=== PATIENT | female | born 1950 | race Caucasian/White ===

== ENCOUNTER 2018-06-09 16:21 | Inpatient (IN) | payer MEDICARE ==
[~2018-06-09] VITALS: Ht 165.1 cm; Wt 67.6 kg
--- NOTE | 2018-06-09 16:11 | NUR ---
ED Nurse Note: Pt BIBA from home due to complaints of vomiting an diarrhea since Thursday. Pt is complainig of body ache and rating the pain a 5/10. Pt appears pale in appearance. Pt had 3 episodes of vomiting today and no episode of diarrhea. Pt states that the vomit is undigested food. A + O x4. Ambulatory.
[2018-06-09 16:13] VITALS: BP 111/62
[~2018-06-09 16:21] MED LIST: SYMBICORT 16010.2 G1 IH
[2018-06-09] MEDS ORDERED: Lidocaine 2% Visc 15ml soln ORAL ONE (17:30)
[2018-06-09 17:40] LABS: BASOPHILS % (AUTO) 0.9 % (0.0-2.0); EOSINOPHILS % (AUTO) 0.4 % (0.0-3.0); HEMATOCRIT 38.3 % (37.0-47.0); HEMOGLOBIN 12.8 G/DL (12.0-16.0); LYMPHOCYTES % (AUTO) 32.8 % (20.0-45.0); MEAN CORPUSCULAR VOLUME 94 FL (80-99); MONOCYTES % (AUTO) 11.3 % (1.0-10.0); NEUTROPHILS % (AUTO) 54.6 % (45.0-75.0); PLATELET COUNT 190 K/UL (150-450); RED BLOOD COUNT 4.05 M/UL (4.20-5.40); RED CELL DISTRIBUTION WIDTH 11.3 % (11.6-14.8); WHITE BLOOD COUNT 4.4 K/UL (4.8-10.8)
--- NOTE | 2018-06-09 17:48 | NUR ---
ED Nurse Note: Pt went down for xray.
[2018-06-09 17:50] LABS: ANION GAP 5 mmol/L (5-15); BLOOD UREA NITROGEN 22 mg/dL (7-18); CALCIUM 8.8 MG/DL (8.5-10.1); CARBON DIOXIDE 29 MMOL/L (21-32); CHLORIDE 104 MMOL/L (98-107); CREATININE 1.3 MG/DL (0.55-1.30); POTASSIUM 4.1 MMOL/L (3.5-5.1); SODIUM 138 MMOL/L (136-145)
[2018-06-09 17:54] LABS: ALANINE AMINOTRANSFERASE 22 U/L (12-78); ALBUMIN 2.7 G/DL (3.4-5.0); ALBUMIN/GLOBULIN RATIO 0.8 (1.0-2.7); ALKALINE PHOSPHATASE 61 U/L (46-116); ASPARTATE AMINO TRANSFERASE 31 U/L (15-37); BILIRUBIN,TOTAL 0.2 MG/DL (0.2-1.0)
--- NOTE | 2018-06-09 17:59 | NUR ---
ED Nurse Note: Pt back from CT.
--- NOTE | 2018-06-09 19:04 | NUR ---
HAND-OFF: Report given to JATINDER Francis.
--- NOTE | 2018-06-09 19:27 | Emergency Room Report ---
History of Present Illness General Chief Complaint: Nausea, Vomiting, and Diarrhea Source: Patient Present Illness HPI This patient states she has a history of severe GERD and gastritis. She has a hiatal hernia. She receives all of her care in the [facility] in [place]. She states she is on 3 different medications for acid reflux. She has seen a escapement matcher and a armhole baster jumpbasting. She states that over the past 3 days she has had progressively worsening burning in her throat and recurrent nausea vomiting epigastric pain. She denies fever or chills. She denies dysuria or hematuria. She does have a history of COPD. Allergies: Coded Allergies: No Known Allergies (Unverified , 06/09/18) Patient History Last Menstrual Period: n/a Nursing Documentation-H Hx Asthma: Yes Hx COPD: Yes - PNA Physical Exam Vital Signs Date Time Temp Pulse Resp B/P (MAP) Pulse Ox O2 Delivery O2 Flow Rate FiO2 06/09/18 16:03 98.1 86 18 112/73 96 Room Air Medical Decision Making Laboratory Tests Test 06/09/18 17:19 White Blood Count 4.4 K/UL (4.8-10.8) L Red Blood Count 4.05 M/UL (4.20-5.40) L Hemoglobin 12.8 G/DL (12.0-16.0) Hematocrit 38.3 % (37.0-47.0) Mean Corpuscular Volume 94 FL (80-99) Mean Corpuscular Hemoglobin 31.5 PG (27.0-31.0) H Mean Corpuscular Hemoglobin Concent 33.3 G/DL (32.0-36.0) Red Cell Distribution Width 11.3 % (11.6-14.8) L Platelet Count 190 K/UL (150-450) Mean Platelet Volume 5.7 FL (6.5-10.1) L Neutrophils (%) (Auto) 54.6 % (45.0-75.0) Lymphocytes (%) (Auto) 32.8 % (20.0-45.0) Monocytes (%) (Auto) 11.3 % (1.0-10.0) H Eosinophils (%) (Auto) 0.4 % (0.0-3.0) Basophils (%) (Auto) 0.9 % (0.0-2.0) Sodium Level 138 MMOL/L (136-145) Potassium Level 4.1 MMOL/L (3.5-5.1) Chloride Level 104 MMOL/L (98-107) Carbon Dioxide Level 29 MMOL/L (21-32) Anion Gap 5 mmol/L (5-15) Blood Urea Nitrogen 22 mg/dL (7-18) H Creatinine 1.3 MG/DL (0.55-1.30) Estimate Glomerular Filtration Rate 40.6 mL/min (>60) Glucose Level 92 MG/DL (74-106) Calcium Level 8.8 MG/DL (8.5-10.1) Total Bilirubin 0.2 MG/DL (0.2-1.0) Aspartate Amino Transferase (AST) 31 U/L (15-37) Alanine Aminotransferase (ALT) 22 U/L (12-78) Alkaline Phosphatase 61 U/L (46-116) Total Protein 6.3 G/DL (6.4-8.2) L Albumin 2.7 G/DL (3.4-5.0) L Globulin 3.6 g/dL Albumin/Globulin Ratio 0.8 (1.0-2.7) L Lipase 171 U/L (73-393) Last Vital Signs Date Time Temp Pulse Resp B/P (MAP) Pulse Ox O2 Delivery O2 Flow Rate FiO2 06/09/18 16:13 98.1 74 14 111/62 96 Room Air Hina Baez DO Jun 09, 2018 19:27
[2018-06-09 19:30] VITALS: BP 135/74
[2018-06-09] MEDS ORDERED: Albuterol ud Inhalation HHN ONE (19:30)
[2018-06-09] MEDS ORDERED: Ipratropium 0.02% Inh Soln 2.5ml UD HHN ONE (19:30)
[2018-06-09 19:37] LABS: APPEARANCE,URINE CLEAR; BILIRUBIN, URINE NEGATIVE (NEGATIVE); COLOR,URINE PALE YELLOW; GLUCOSE, URINE (UA) NEGATIVE (NEGATIVE); KETONES,URINE NEGATIVE (NEGATIVE); LEUKOCYTE ESTERASE ,URINE NEGATIVE (NEGATIVE); NITRITE,URINE POSITIVE (NEGATIVE); PH,URINE 6 (4.5-8.0); PROTEIN,URINE NEGATIVE (NEGATIVE); UROBILINOGEN,URINE NORMAL MG/DL (0.0-1.0)
[2018-06-09 21:00] VITALS: BP 130/72
--- NOTE | 2018-06-09 21:12 | NUR ---
ER Nurse Note: Pt a&ox4, VSS, no signs of distress. Pt does not complain of pain. Pt is calm, cooperative. Awaiting orders and bed, will continue to montior.
--- NOTE | 2018-06-09 21:30 | NUR ---
ER Nurse Note: Report given to JATINDER Arreola in [place] for continuity of care. Pt a&ox4, VSS, no signs of distress. No n/v/d on shift. All orders completed per ERMD orders. Pt left with all belongings.
[2018-06-09 22:04] VITALS: BP 135/74
[2018-06-09] MEDS ORDERED: Promethazine HCl 25 MG in NS 55 ML IV PRN (22:15)
[2018-06-09] MEDS ORDERED: Nitroglycerin Subl 0.4mg tab SL PRN (22:15)
[2018-06-09] MEDS ORDERED: Morphine Sulfate 2mg/ml Inj(IV/IM USE ONLY) IVP PRN (22:15)
[2018-06-09] MEDS ORDERED: LORazepam Inj 2mg/ml 1ml IV PRN (22:15)
[2018-06-09] MEDS ORDERED: Mylanta II UD 30ml ORAL PRN (22:15)
[2018-06-09] MEDS ORDERED: Miralax 17gm pkt ORAL PRN (22:15)
[2018-06-09] MEDS ORDERED: Promethazine HCl 12.5 MG in NS 55 ML IV PRN (22:15)
[2018-06-09] MEDS: D5 1/2NS 1,000 ML IV SCH (22:39)
--- NOTE | 2018-06-09 23:36 | NUR ---
NURSE NOTES: Received report from Penny from ER. Patient arrived via gurney but was able to ambulate to bed. Belongings checked. Oriented pt to room and call light. NPO order noted. Skin intact. IV site patent, asymptomatic. Bed on lowest position, 2 side rails up, call light and belongings within reach. Ice chips offered.
[2018-06-10] VITALS: BP 101/47
[2018-06-10 03:48] VITALS: BP 100/51
[2018-06-10 07:30] LABS: HEMATOCRIT 34.8 % (37.0-47.0); HEMOGLOBIN 11.5 G/DL (12.0-16.0); MEAN CORPUSCULAR VOLUME 96 FL (80-99); PLATELET COUNT 166 K/UL (150-450); RED BLOOD COUNT 3.62 M/UL (4.20-5.40); RED CELL DISTRIBUTION WIDTH 11.6 % (11.6-14.8); WHITE BLOOD COUNT 2.9 K/UL (4.8-10.8)
--- NOTE | 2018-06-10 07:46 | NUR ---
NURSE NOTES: Patient received in stable condition, resting in bed. Breathing unlabored on room air. No s/s of respiratory distress. Nasal cannula by bedside. Denies pain at this time. Patient observed ambulating independently with steady gait. IV site patent and intact on left arm. Call light placed within reach, will continue to monitor.
[2018-06-10 07:50] LABS: ALANINE AMINOTRANSFERASE 18 U/L (12-78); ALBUMIN 2.4 G/DL (3.4-5.0); ALBUMIN/GLOBULIN RATIO 0.7 (1.0-2.7); ALKALINE PHOSPHATASE 53 U/L (46-116); AMYLASE 27 U/L (25-115); ANION GAP 8 mmol/L (5-15); ASPARTATE AMINO TRANSFERASE 28 U/L (15-37); BILIRUBIN,TOTAL 0.1 MG/DL (0.2-1.0); BLOOD UREA NITROGEN 15 mg/dL (7-18); CARBON DIOXIDE 25 MMOL/L (21-32); CHLORIDE 108 MMOL/L (98-107); CREATININE 1.1 MG/DL (0.55-1.30); SODIUM 141 MMOL/L (136-145)
[2018-06-10 08:00] VITALS: BP 109/56
[2018-06-10] MEDS: Pantoprazole Inj IV SCH (08:52)
[2018-06-10] MEDS: Heparin 5000 units/ml inj SUBQ SCH ×2 (08:57→20:05)
--- NOTE | 2018-06-10 10:54 | NUR ---
CHARGE NURSE NOTES: DR. GALARZA MADE AWARE PATIENT WBC IS 2.9. AWAITING RESPONSE.
[2018-06-10] MEDS: D5 1/2NS 1,000 ML IV SCH (11:22)
--- NOTE | 2018-06-10 11:48 | GI Initial Consult Note ---
History of Present Illness General Date patient seen: Jun 10, 2018 Time patient seen: 11:41 Reason for Hospitalization: Nausea, Vomiting, and Diarrhea Referring physician: UJSTINE GALARZA Reason for Consultation: Symptomatic GERD Present Illness HPI This patient states she has a history of severe GERD and gastritis. She has a hiatal hernia. She receives all of her care in the [facility] in [place]. She states she is on 3 different medications for acid reflux. She has seen a battery tester and a meal cooker. She states that over the past 3 days she has had progressively worsening burning in her throat and recurrent nausea vomiting epigastric pain. She denies fever or chills. She denies dysuria or hematuria. She does have a history of COPD. GI consulted for symptomatic GERD. Patient seen, awake alert and oriented x4 no apparent distress. Has complaint of recurrent epigastric pain, associated with nausea and vomiting that has progressively been getting worse. Patient says she has been seen by battery tester, had an upper endoscopy over 1.5-2 years ago in which she was diagnosed with a hiatal hernia. Patient states she is currently on Protonix daily and Zantac nightly. Was also reported by the RN that the patient has been having bowel movements with noted possible mucus or fat. Labs reviewed; no leukocytosis, normocytic anemia, no transaminitis. Home Meds Reported Medications Budesonide/Formoterol Fumarate (SYMBICORT 160-4.5 MCG INHALER) 10.2 Gm Hfa.aer.ad, 1 PUFF IH, #1 INH 0 Refills 06/09/18 Med list reviewed/reconciled: Yes Allergies: Coded Allergies: No Known Allergies (Unverified , 06/09/18) Patient History History Provided By: Patient, Medical Record PMH Narrative Last Menstrual Period: n/a Nursing Documentation-PMH Hx Asthma: Yes Hx COPD: Yes - PNA Social History: Denies: smoking, alcohol use, drug use, other Review of Systems All Other Systems: negative except mentioned in HPI Physical Exam Vital Signs Date Time Temp Pulse Resp B/P (MAP) Pulse Ox O2 Delivery O2 Flow Rate FiO2 06/09/18 16:03 98.1 86 18 112/73 96 Room Air 06/09/18 19:43 21 06/09/18 21:57 2.0 Sp02 EP Interpretation: reviewed, normal Labs Laboratory Tests Test 06/09/18 17:19 06/09/18 19:15 06/10/18 05:45 White Blood Count 4.4 K/UL (4.8-10.8) L 2.9 K/UL (4.8-10.8) L Red Blood Count 4.05 M/UL (4.20-5.40) L 3.62 M/UL (4.20-5.40) L Hemoglobin 12.8 G/DL (12.0-16.0) 11.5 G/DL (12.0-16.0) L Hematocrit 38.3 % (37.0-47.0) 34.8 % (37.0-47.0) L Mean Corpuscular Volume 94 FL (80-99) 96 FL (80-99) Mean Corpuscular Hemoglobin 31.5 PG (27.0-31.0) H 31.8 PG (27.0-31.0) H Mean Corpuscular Hemoglobin Concent 33.3 G/DL (32.0-36.0) 33.0 G/DL (32.0-36.0) Red Cell Distribution Width 11.3 % (11.6-14.8) L 11.6 % (11.6-14.8) Platelet Count 190 K/UL (150-450) 166 K/UL (150-450) Mean Platelet Volume 5.7 FL (6.5-10.1) L 5.7 FL (6.5-10.1) L Neutrophils (%) (Auto) 54.6 % (45.0-75.0) % (45.0-75.0) Lymphocytes (%) (Auto) 32.8 % (20.0-45.0) % (20.0-45.0) Monocytes (%) (Auto) 11.3 % (1.0-10.0) H % (1.0-10.0) Eosinophils (%) (Auto) 0.4 % (0.0-3.0) % (0.0-3.0) Basophils (%) (Auto) 0.9 % (0.0-2.0) % (0.0-2.0) Sodium Level 138 MMOL/L (136-145) 141 MMOL/L (136-145) Potassium Level 4.1 MMOL/L (3.5-5.1) 4.0 MMOL/L (3.5-5.1) Chloride Level 104 MMOL/L (98-107) 108 MMOL/L (98-107) H Carbon Dioxide Level 29 MMOL/L (21-32) 25 MMOL/L (21-32) Anion Gap 5 mmol/L (5-15) 8 mmol/L (5-15) Blood Urea Nitrogen 22 mg/dL (7-18) H 15 mg/dL (7-18) Creatinine 1.3 MG/DL (0.55-1.30) 1.1 MG/DL (0.55-1.30) Estimat Glomerular Filtration Rate 40.6 mL/min (>60) 49.3 mL/min (>60) Glucose Level 92 MG/DL (74-106) 114 MG/DL (74-106) H Calcium Level 8.8 MG/DL (8.5-10.1) 8.0 MG/DL (8.5-10.1) L Total Bilirubin 0.2 MG/DL (0.2-1.0) 0.1 MG/DL (0.2-1.0) L Aspartate Amino Transf (AST/SGOT) 31 U/L (15-37) 28 U/L (15-37) Alanine Aminotransferase (ALT/SGPT) 22 U/L (12-78) 18 U/L (12-78) Alkaline Phosphatase 61 U/L (46-116) 53 U/L (46-116) Total Protein 6.3 G/DL (6.4-8.2) L 5.7 G/DL (6.4-8.2) L Albumin 2.7 G/DL (3.4-5.0) L 2.4 G/DL (3.4-5.0) L Globulin 3.6 g/dL 3.3 g/dL Albumin/Globulin Ratio 0.8 (1.0-2.7) L 0.7 (1.0-2.7) L Lipase 171 U/L (73-393) 113 U/L (73-393) Urine Color Pale yellow Urine Appearance Clear Urine pH 6 (4.5-8.0) Urine Specific [place] 1.010 (1.005-1.035) Urine Protein Negative (NEGATIVE) Urine Glucose (UA) Negative (NEGATIVE) Urine Ketones Negative (NEGATIVE) Urine Blood Negative (NEGATIVE) Urine Nitrite Positive (NEGATIVE) H Urine Bilirubin Negative (NEGATIVE) Urine Urobilinogen Normal MG/DL (0.0-1.0) Urine Leukocyte Esterase Negative (NEGATIVE) Urine RBC 0-2 /HPF (0 - 2) Urine WBC 2-4 /HPF (0 - 2) Urine Squamous Epithelial Cells Occasional /LPF Urine Bacteria Many /HPF (NONE) H Differential Total Cells Counted 100 Neutrophils % (Manual) 51 % (45-75) Lymphocytes % (Manual) 36 % (20-45) Monocytes % (Manual) 13 % (1-10) H Eosinophils % (Manual) 0 % (0-3) Basophils % (Manual) 0 % (0-2) Band Neutrophils 0 % (0-8) Platelet Estimate Decreased L Platelet Morphology Normal Red Blood Cell Morphology Normal Activated Partial Thromboplast Time 32 SEC (23-33) Amylase Level 27 U/L (25-115) Hepatitis A IgM Antibody Pending Hepatitis B Surface Antigen Pending Hepatitis B Core IgM Antibody Pending Hepatitis C Antibody Pending General Appearance: well appearing, no apparent distress, alert Head: normocephalic EENT: PERRL/EOMI, normal ENT inspection Neck: supple Respiratory: normal breath sounds, no respiratory distress Cardiovascular: normal rate Gastrointestinal: normal inspection, non tender, soft, normal bowel sounds, non -distended Rectal: deferred Genitourinary: no CVA tenderness Musculoskeletal: normal inspection, back normal Neurologic: normal inspection, alert, oriented x3, responsive Psychiatric: normal inspection, judgement/insight normal, memory normal Skin: normal inspection, normal color, no rash, warm/dry, palpation normal, well hydrated Lymphatic: normal inspection, no adenopathy Current Medications Current Medications Medications (Trade) Dose Ordered Sig/Galindo Route PRN Reason Start Time Stop Time Status Last Admin Dose Admin Acetaminophen (Tylenol) 650 mg Q4H PRN ORAL fever 06/09/18 22:15 07/09/18 22:14 Al Hydroxide/Mg Hydroxide (Mylanta II) 30 ml Q6H PRN ORAL dyspepsia 06/09/18 22:15 07/09/18 22:14 Dextrose (Dextrose 50%) 25 ml Q30M PRN IV Hypoglycemia 06/09/18 22:15 07/09/18 22:14 Dextrose (Dextrose 50%) 50 ml Q30M PRN IV Hypoglycemia 06/09/18 22:15 07/09/18 22:14 Dextrose/Sodium Chloride 1,000 ml @ 75 mls/hr [id number] IV 06/09/18 22:02 07/09/18 22:01 06/09/18 22:39 Diphenhydramine HCl (Benadryl) 25 mg Q6H PRN ORAL Itching/Pruritis 06/09/18 22:15 07/09/18 22:14 Heparin Sodium (Porcine) (Heparin 5000 units/ml) 5,000 units EVERY 12 HOURS SUBQ 06/10/18 09:00 07/10/18 08:59 06/10/18 08:57 Lorazepam (Ativan 2mg/ml 1ml) 1 mg EVERY 4 HOURS PRN IV agitation 06/09/18 22:15 06/16/18 22:14 Metoclopramide HCl (Reglan) 10 mg EVERY 6 HOURS PRN IVP servere nauasea 06/09/18 22:15 07/09/18 22:14 Morphine Sulfate (Morphine Sulfate) 2 mg EVERY 4 HOURS PRN IVP severe Pain (Pain Scale 7-10) 06/09/18 22:15 06/16/18 22:14 Nitroglycerin (Ntg) 0.4 mg Q5M X 3 DOSES PRN SL Prn Chest Pain 06/09/18 22:15 07/09/18 22:14 Ondansetron HCl (Zofran) 4 mg Q6H PRN IVP Nausea & Vomiting 06/09/18 22:15 07/09/18 22:14 Pantoprazole (Protonix) 40 mg DAILY IV 06/10/18 09:00 07/10/18 08:59 06/10/18 08:52 Polyethylene Glycol (Miralax) 17 gm HSPRN PRN ORAL Constipation 06/09/18 22:15 07/09/18 22:14 Promethazine HCl 12.5 mg/Sodium Chloride 55.5 ml @ 110 mls/hr Q6H PRN IV Refractory N/V 06/09/18 22:15 07/09/18 22:14 Promethazine HCl 25 mg/Sodium Chloride 56 ml @ 110 mls/hr Q6H PRN IV Refractory N/V 06/09/18 22:15 07/09/18 22:14 Temazepam (Restoril) 15 mg HSPRN PRN ORAL Insomnia 06/09/18 22:15 06/16/18 22:14 GI: Plan Problems: (1) GERD (gastroesophageal reflux disease) (2) Gastritis (3) Nausea, vomiting, and diarrhea Plan EGD scheduled for tomorrow. - ok to advance diet -Hold all blood thinners PPI twice daily PRN transfusions Zofran as needed Follow labs We will follow with additional recommendations post procedure Discussed with Dr. Ziegler. Thank you for this patient referral, we will follow. The patient was seen and examined at bedside and all new and available data was reviewed in the patients chart. I agree with the above findings, impression and plan. (Patient seen earlier today. Signature stamp does not reflect patient encounter time.). - MD Carina Davis,[facility] MANAGER WEB APPLICATION Jun 10, 2018 11:48
--- NOTE | 2018-06-10 11:56 | Diagnostic Imaging Report ---
Indication: Cough Technique: 2 views of the chest Comparison: none Findings: There is bilateral nodular interstitial disease in a predominantly basilar distribution. No effusions. The heart size is normal. Impression: Bilateral basilar nodular interstitial infiltrates.. Nonspecific as regards etiology. These could be infectious, noninfectious inflammatory, less likely on the basis of pulmonary edema. Correlate with clinical findings This agrees with the preliminary interpretation provided overnight by [facility] teleradiology service.
[2018-06-10 12:00] VITALS: BP 113/58
--- NOTE | 2018-06-10 12:10 | Consultation ---
History of Present Illness General Chief Complaint: Nausea, Vomiting, and Diarrhea Referring physician: JUSTINE GALARZA Reason for Consultation: inpatient management Present Illness HPI 67 year old lady with a history of severe GERD and gastritis, COPD, hiatal hernia. She presented to ER with CC of 3 days of progressively worsening burning in her throat and recurrent nausea vomiting epigastric pain. She denies fever or chills. She denies dysuria or hematuria. she is admitted for intractable nausea and vomiting and being unable to eat. Allergies: Coded Allergies: No Known Allergies (Unverified , 06/09/18) Medication History Miscellaneous Medications Budesonide/Formoterol Fumarate (Symbicort 160-4.5 Mcg Inhaler), 1 PUFF IH, ( Reported) Patient History Healthcare decision maker Resuscitation status Full Code Advanced Directive on File Past Medical/Surgical History Past Medical/Surgical History: (1) Gastritis Review of Systems All Other Systems: negative except mentioned in HPI Physical Exam General Appearance: WD/WN Lines, tubes and drains: peripheral HEENT: normocephalic, atraumatic Neck: non-tender, normal alignment, limited range of motion Respiratory/Chest: chest wall non-tender, no respiratory distress Breasts: no masses Cardiovascular/Chest: normal rate Abdomen: normal bowel sounds, abnormal bowel sounds Extremities: normal range of motion Last 24 Hour Vital Signs Date Time Temp Pulse Resp B/P (MAP) Pulse Ox O2 Delivery O2 Flow Rate FiO2 06/10/18 09:00 Room Air 06/10/18 08:00 98.2 74 19 109/56 (73) 98 06/10/18 03:48 98.0 69 18 100/51 (67) 99 06/10/18 00:00 97.7 65 16 101/47 (65) 97 06/09/18 23:10 Nasal Cannula 2.0 06/09/18 22:04 98.5 80 18 135/74 (94) 96 06/09/18 21:57 Nasal Cannula 2.0 28 06/09/18 21:57 98 Nasal Cannula 2.0 28 06/09/18 21:30 98.2 77 16 135/74 100 Room Air 21 06/09/18 21:00 98.1 80 17 130/72 100 Room Air 06/09/18 20:08 84 16 100 Room Air 21 06/09/18 19:43 75 17 95 Room Air 21 06/09/18 19:43 75 17 Room Air 21 06/09/18 19:30 98.2 77 15 135/74 97 Room Air 06/09/18 16:13 98.1 74 14 111/62 96 Room Air 06/09/18 16:03 98.1 86 18 112/73 96 Room Air Intake and Output 06/09/18 06/10/18 19:00 07:00 Intake Total 2625 ml Balance 2625 ml Intake Oral 25 ml IV Total 2600 ml # Voids 3 Laboratory Tests Test 06/09/18 17:19 06/09/18 19:15 06/10/18 05:45 White Blood Count 4.4 K/UL (4.8-10.8) L 2.9 K/UL (4.8-10.8) L Red Blood Count 4.05 M/UL (4.20-5.40) L 3.62 M/UL (4.20-5.40) L Hemoglobin 12.8 G/DL (12.0-16.0) 11.5 G/DL (12.0-16.0) L Hematocrit 38.3 % (37.0-47.0) 34.8 % (37.0-47.0) L Mean Corpuscular Volume 94 FL (80-99) 96 FL (80-99) Mean Corpuscular Hemoglobin 31.5 PG (27.0-31.0) H 31.8 PG (27.0-31.0) H Mean Corpuscular Hemoglobin Concent 33.3 G/DL (32.0-36.0) 33.0 G/DL (32.0-36.0) Red Cell Distribution Width 11.3 % (11.6-14.8) L 11.6 % (11.6-14.8) Platelet Count 190 K/UL (150-450) 166 K/UL (150-450) Mean Platelet Volume 5.7 FL (6.5-10.1) L 5.7 FL (6.5-10.1) L Neutrophils (%) (Auto) 54.6 % (45.0-75.0) % (45.0-75.0) Lymphocytes (%) (Auto) 32.8 % (20.0-45.0) % (20.0-45.0) Monocytes (%) (Auto) 11.3 % (1.0-10.0) H % (1.0-10.0) Eosinophils (%) (Auto) 0.4 % (0.0-3.0) % (0.0-3.0) Basophils (%) (Auto) 0.9 % (0.0-2.0) % (0.0-2.0) Sodium Level 138 MMOL/L (136-145) 141 MMOL/L (136-145) Potassium Level 4.1 MMOL/L (3.5-5.1) 4.0 MMOL/L (3.5-5.1) Chloride Level 104 MMOL/L (98-107) 108 MMOL/L (98-107) H Carbon Dioxide Level 29 MMOL/L (21-32) 25 MMOL/L (21-32) Anion Gap 5 mmol/L (5-15) 8 mmol/L (5-15) Blood Urea Nitrogen 22 mg/dL (7-18) H 15 mg/dL (7-18) Creatinine 1.3 MG/DL (0.55-1.30) 1.1 MG/DL (0.55-1.30) Estimat Glomerular Filtration Rate 40.6 mL/min (>60) 49.3 mL/min (>60) Glucose Level 92 MG/DL (74-106) 114 MG/DL (74-106) H Calcium Level 8.8 MG/DL (8.5-10.1) 8.0 MG/DL (8.5-10.1) L Total Bilirubin 0.2 MG/DL (0.2-1.0) 0.1 MG/DL (0.2-1.0) L Aspartate Amino Transf (AST/SGOT) 31 U/L (15-37) 28 U/L (15-37) Alanine Aminotransferase (ALT/SGPT) 22 U/L (12-78) 18 U/L (12-78) Alkaline Phosphatase 61 U/L (46-116) 53 U/L (46-116) Total Protein 6.3 G/DL (6.4-8.2) L 5.7 G/DL (6.4-8.2) L Albumin 2.7 G/DL (3.4-5.0) L 2.4 G/DL (3.4-5.0) L Globulin 3.6 g/dL 3.3 g/dL Albumin/Globulin Ratio 0.8 (1.0-2.7) L 0.7 (1.0-2.7) L Lipase 171 U/L (73-393) 113 U/L (73-393) Urine Color Pale yellow Urine Appearance Clear Urine pH 6 (4.5-8.0) Urine Specific [place] 1.010 (1.005-1.035) Urine Protein Negative (NEGATIVE) Urine Glucose (UA) Negative (NEGATIVE) Urine Ketones Negative (NEGATIVE) Urine Blood Negative (NEGATIVE) Urine Nitrite Positive (NEGATIVE) H Urine Bilirubin Negative (NEGATIVE) Urine Urobilinogen Normal MG/DL (0.0-1.0) Urine Leukocyte Esterase Negative (NEGATIVE) Urine RBC 0-2 /HPF (0 - 2) Urine WBC 2-4 /HPF (0 - 2) Urine Squamous Epithelial Cells Occasional /LPF Urine Bacteria Many /HPF (NONE) H Differential Total Cells Counted 100 Neutrophils % (Manual) 51 % (45-75) Lymphocytes % (Manual) 36 % (20-45) Monocytes % (Manual) 13 % (1-10) H Eosinophils % (Manual) 0 % (0-3) Basophils % (Manual) 0 % (0-2) Band Neutrophils 0 % (0-8) Platelet Estimate Decreased L Platelet Morphology Normal Red Blood Cell Morphology Normal Activated Partial Thromboplast Time 32 SEC (23-33) Amylase Level 27 U/L (25-115) Hepatitis A IgM Antibody Pending Hepatitis B Surface Antigen Pending Hepatitis B Core IgM Antibody Pending Hepatitis C Antibody Pending Height (Feet): 5 Height (Inches): 3.00 Weight (Pounds): 149 Medications Current Medications Medications (Trade) Dose Ordered Sig/Galindo Route PRN Reason Start Time Stop Time Status Last Admin Dose Admin Acetaminophen (Tylenol) 650 mg Q4H PRN ORAL fever 06/09/18 22:15 07/09/18 22:14 Al Hydroxide/Mg Hydroxide (Mylanta II) 30 ml Q6H PRN ORAL dyspepsia 06/09/18 22:15 07/09/18 22:14 Dextrose (Dextrose 50%) 25 ml Q30M PRN IV Hypoglycemia 06/09/18 22:15 07/09/18 22:14 Dextrose (Dextrose 50%) 50 ml Q30M PRN IV Hypoglycemia 06/09/18 22:15 07/09/18 22:14 Dextrose/Sodium Chloride 1,000 ml @ 75 mls/hr [id number] IV 06/09/18 22:02 07/09/18 22:01 06/09/18 22:39 Diphenhydramine HCl (Benadryl) 25 mg Q6H PRN ORAL Itching/Pruritis 06/09/18 22:15 07/09/18 22:14 Heparin Sodium (Porcine) (Heparin 5000 units/ml) 5,000 units EVERY 12 HOURS SUBQ 06/10/18 09:00 07/10/18 08:59 06/10/18 08:57 Lorazepam (Ativan 2mg/ml 1ml) 1 mg EVERY 4 HOURS PRN IV agitation 06/09/18 22:15 06/16/18 22:14 Metoclopramide HCl (Reglan) 10 mg EVERY 6 HOURS PRN IVP servere nauasea 06/09/18 22:15 07/09/18 22:14 Morphine Sulfate (Morphine Sulfate) 2 mg EVERY 4 HOURS PRN IVP severe Pain (Pain Scale 7-10) 06/09/18 22:15 06/16/18 22:14 Nitroglycerin (Ntg) 0.4 mg Q5M X 3 DOSES PRN SL Prn Chest Pain 06/09/18 22:15 07/09/18 22:14 Ondansetron HCl (Zofran) 4 mg Q6H PRN IVP Nausea & Vomiting 06/09/18 22:15 07/09/18 22:14 Pantoprazole (Protonix) 40 mg DAILY IV 06/10/18 09:00 07/10/18 08:59 06/10/18 08:52 Polyethylene Glycol (Miralax) 17 gm HSPRN PRN ORAL Constipation 06/09/18 22:15 07/09/18 22:14 Promethazine HCl 12.5 mg/Sodium Chloride 55.5 ml @ 110 mls/hr Q6H PRN IV Refractory N/V 06/09/18 22:15 07/09/18 22:14 Promethazine HCl 25 mg/Sodium Chloride 56 ml @ 110 mls/hr Q6H PRN IV Refractory N/V 06/09/18 22:15 07/09/18 22:14 Temazepam (Restoril) 15 mg HSPRN PRN ORAL Insomnia 06/09/18 22:15 06/16/18 22:14 Assessment/Plan Problem List: (1) Intractable nausea and vomiting ICD Codes: R11.2 - Nausea with vomiting, unspecified SNOMED: 139722127 (2) COPD (chronic obstructive pulmonary disease) ICD Codes: J44.9 - Chronic obstructive pulmonary disease, unspecified SNOMED: 44787322 (3) Gastritis ICD Codes: K29.70 - Gastritis, unspecified, without bleeding SNOMED: 7954964 (4) GERD (gastroesophageal reflux disease) ICD Codes: K21.9 - Gastro-esophageal reflux disease without esophagitis SNOMED: 464634759 Assessment/Plan NPO iv fluids GI evaluation H2 blockers carafate. Mary Wallis MD Jun 10, 2018 12:10
--- NOTE | 2018-06-10 13:39 | NUR ---
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 15, Temp. 98.2, O2Sat 97 Room Air WBC 4.4, RBC 4.05, MCH 31.5, RDW 11.3, MPV 5.7, MONO% 11.3 CXR Impression: Bilateral basilar nodular interstitial infiltrates IS:Mylanta 30ml PO Pepcid 20mg IVP Zofran 4mg IVP Proventil 5mg Inhaler Atrovent 500 mcg Nebulizer NS IV x 1L Medsurg Status DC plan to return Home
--- NOTE | 2018-06-10 14:51 | Consultation ---
History of Present Illness General Date patient seen: Jun 10, 2018 Chief Complaint: Nausea, Vomiting, and Diarrhea Referring physician: JUSTINE GALARZA Reason for Consultation: inpatient management Present Illness HPI 67 y/o F with hx of severe GERD/gastritis, COPD, hiatal hernia presents to ED on 06/09 with 3 days of progressive sore throat (burning) and recurrent nausea, vomiting and epigastric pain. Denied f/c, dysuria, hematuria. Allergies: Coded Allergies: No Known Allergies (Unverified , 06/09/18) Medication History Miscellaneous Medications Budesonide/Formoterol Fumarate (Symbicort 160-4.5 Mcg Inhaler), 1 PUFF IH, ( Reported) Patient History Healthcare decision maker Resuscitation status Full Code Advanced Directive on File Patient History Narrative Pmhx: as above Shx:: Denies: smoking, alcohol use, drug use, other Fhx: non contributory Physical Exam Physical Exam Narrative General Appearance: well appearing, no apparent distress, alert HEENT: normocephalic normal ENT inspection Neck: supple Respiratory: normal breath sounds, no respiratory distress Cardiovascular: normal rate Gastrointestinal: normal inspection, non tender, soft, normal bowel sounds, non -distended Genitourinary: no CVA tenderness Musculoskeletal: normal inspection, back normal Neurologic: normal inspection, alert, oriented x3, responsive Skin: normal inspection, normal color, no rash, warm/dry, palpation normal, well hydrated Last 24 Hour Vital Signs Date Time Temp Pulse Resp B/P (MAP) Pulse Ox O2 Delivery O2 Flow Rate FiO2 06/10/18 12:00 97.9 72 19 113/58 (76) 99 06/10/18 09:00 Room Air 06/10/18 08:00 98.2 74 19 109/56 (73) 98 06/10/18 03:48 98.0 69 18 100/51 (67) 99 06/10/18 00:00 97.7 65 16 101/47 (65) 97 06/09/18 23:10 Nasal Cannula 2.0 06/09/18 22:04 98.5 80 18 135/74 (94) 96 06/09/18 21:57 Nasal Cannula 2.0 28 06/09/18 21:57 98 Nasal Cannula 2.0 28 06/09/18 21:30 98.2 77 16 135/74 100 Room Air 21 06/09/18 21:00 98.1 80 17 130/72 100 Room Air 06/09/18 20:08 84 16 100 Room Air 21 06/09/18 19:43 75 17 95 Room Air 21 06/09/18 19:43 75 17 Room Air 21 06/09/18 19:30 98.2 77 15 135/74 97 Room Air 06/09/18 16:13 98.1 74 14 111/62 96 Room Air 06/09/18 16:03 98.1 86 18 112/73 96 Room Air Intake and Output 06/09/18 06/10/18 19:00 07:00 Intake Total 2625 ml Balance 2625 ml Intake Oral 25 ml IV Total 2600 ml # Voids 3 Laboratory Tests Test 06/09/18 17:19 06/09/18 19:15 06/10/18 05:45 White Blood Count 4.4 K/UL (4.8-10.8) L 2.9 K/UL (4.8-10.8) L Red Blood Count 4.05 M/UL (4.20-5.40) L 3.62 M/UL (4.20-5.40) L Hemoglobin 12.8 G/DL (12.0-16.0) 11.5 G/DL (12.0-16.0) L Hematocrit 38.3 % (37.0-47.0) 34.8 % (37.0-47.0) L Mean Corpuscular Volume 94 FL (80-99) 96 FL (80-99) Mean Corpuscular Hemoglobin 31.5 PG (27.0-31.0) H 31.8 PG (27.0-31.0) H Mean Corpuscular Hemoglobin Concent 33.3 G/DL (32.0-36.0) 33.0 G/DL (32.0-36.0) Red Cell Distribution Width 11.3 % (11.6-14.8) L 11.6 % (11.6-14.8) Platelet Count 190 K/UL (150-450) 166 K/UL (150-450) Mean Platelet Volume 5.7 FL (6.5-10.1) L 5.7 FL (6.5-10.1) L Neutrophils (%) (Auto) 54.6 % (45.0-75.0) % (45.0-75.0) Lymphocytes (%) (Auto) 32.8 % (20.0-45.0) % (20.0-45.0) Monocytes (%) (Auto) 11.3 % (1.0-10.0) H % (1.0-10.0) Eosinophils (%) (Auto) 0.4 % (0.0-3.0) % (0.0-3.0) Basophils (%) (Auto) 0.9 % (0.0-2.0) % (0.0-2.0) Sodium Level 138 MMOL/L (136-145) 141 MMOL/L (136-145) Potassium Level 4.1 MMOL/L (3.5-5.1) 4.0 MMOL/L (3.5-5.1) Chloride Level 104 MMOL/L (98-107) 108 MMOL/L (98-107) H Carbon Dioxide Level 29 MMOL/L (21-32) 25 MMOL/L (21-32) Anion Gap 5 mmol/L (5-15) 8 mmol/L (5-15) Blood Urea Nitrogen 22 mg/dL (7-18) H 15 mg/dL (7-18) Creatinine 1.3 MG/DL (0.55-1.30) 1.1 MG/DL (0.55-1.30) Estimat Glomerular Filtration Rate 40.6 mL/min (>60) 49.3 mL/min (>60) Glucose Level 92 MG/DL (74-106) 114 MG/DL (74-106) H Calcium Level 8.8 MG/DL (8.5-10.1) 8.0 MG/DL (8.5-10.1) L Total Bilirubin 0.2 MG/DL (0.2-1.0) 0.1 MG/DL (0.2-1.0) L Aspartate Amino Transf (AST/SGOT) 31 U/L (15-37) 28 U/L (15-37) Alanine Aminotransferase (ALT/SGPT) 22 U/L (12-78) 18 U/L (12-78) Alkaline Phosphatase 61 U/L (46-116) 53 U/L (46-116) Total Protein 6.3 G/DL (6.4-8.2) L 5.7 G/DL (6.4-8.2) L Albumin 2.7 G/DL (3.4-5.0) L 2.4 G/DL (3.4-5.0) L Globulin 3.6 g/dL 3.3 g/dL Albumin/Globulin Ratio 0.8 (1.0-2.7) L 0.7 (1.0-2.7) L Lipase 171 U/L (73-393) 113 U/L (73-393) Urine Color Pale yellow Urine Appearance Clear Urine pH 6 (4.5-8.0) Urine Specific [place] 1.010 (1.005-1.035) Urine Protein Negative (NEGATIVE) Urine Glucose (UA) Negative (NEGATIVE) Urine Ketones Negative (NEGATIVE) Urine Blood Negative (NEGATIVE) Urine Nitrite Positive (NEGATIVE) H Urine Bilirubin Negative (NEGATIVE) Urine Urobilinogen Normal MG/DL (0.0-1.0) Urine Leukocyte Esterase Negative (NEGATIVE) Urine RBC 0-2 /HPF (0 - 2) Urine WBC 2-4 /HPF (0 - 2) Urine Squamous Epithelial Cells Occasional /LPF Urine Bacteria Many /HPF (NONE) H Differential Total Cells Counted 100 Neutrophils % (Manual) 51 % (45-75) Lymphocytes % (Manual) 36 % (20-45) Monocytes % (Manual) 13 % (1-10) H Eosinophils % (Manual) 0 % (0-3) Basophils % (Manual) 0 % (0-2) Band Neutrophils 0 % (0-8) Platelet Estimate Decreased L Platelet Morphology Normal Red Blood Cell Morphology Normal Activated Partial Thromboplast Time 32 SEC (23-33) Amylase Level 27 U/L (25-115) Hepatitis A IgM Antibody Pending Hepatitis B Surface Antigen Pending Hepatitis B Core IgM Antibody Pending Hepatitis C Antibody Pending Height (Feet): 5 Height (Inches): 3.00 Weight (Pounds): 149 Medications Current Medications Medications (Trade) Dose Ordered Sig/Galindo Route PRN Reason Start Time Stop Time Status Last Admin Dose Admin Acetaminophen (Tylenol) 650 mg Q4H PRN ORAL fever 06/09/18 22:15 07/09/18 22:14 Al Hydroxide/Mg Hydroxide (Mylanta II) 30 ml Q6H PRN ORAL dyspepsia 06/09/18 22:15 07/09/18 22:14 Dextrose (Dextrose 50%) 25 ml Q30M PRN IV Hypoglycemia 06/09/18 22:15 07/09/18 22:14 Dextrose (Dextrose 50%) 50 ml Q30M PRN IV Hypoglycemia 06/09/18 22:15 07/09/18 22:14 Dextrose/Sodium Chloride 1,000 ml @ 75 mls/hr [id number] IV 06/09/18 22:02 07/09/18 22:01 06/09/18 22:39 Diphenhydramine HCl (Benadryl) 25 mg Q6H PRN ORAL Itching/Pruritis 06/09/18 22:15 07/09/18 22:14 Heparin Sodium (Porcine) (Heparin 5000 units/ml) 5,000 units EVERY 12 HOURS SUBQ 06/10/18 09:00 07/10/18 08:59 06/10/18 08:57 Lorazepam (Ativan 2mg/ml 1ml) 1 mg EVERY 4 HOURS PRN IV agitation 06/09/18 22:15 06/16/18 22:14 Metoclopramide HCl (Reglan) 10 mg EVERY 6 HOURS PRN IVP servere nauasea 06/09/18 22:15 07/09/18 22:14 Morphine Sulfate (Morphine Sulfate) 2 mg EVERY 4 HOURS PRN IVP severe Pain (Pain Scale 7-10) 06/09/18 22:15 06/16/18 22:14 Nitroglycerin (Ntg) 0.4 mg Q5M X 3 DOSES PRN SL Prn Chest Pain 06/09/18 22:15 07/09/18 22:14 Ondansetron HCl (Zofran) 4 mg Q6H PRN IVP Nausea & Vomiting 06/09/18 22:15 07/09/18 22:14 Pantoprazole (Protonix) 40 mg DAILY IV 06/10/18 09:00 07/10/18 08:59 06/10/18 08:52 Polyethylene Glycol (Miralax) 17 gm HSPRN PRN ORAL Constipation 06/09/18 22:15 07/09/18 22:14 Promethazine HCl 12.5 mg/Sodium Chloride 55.5 ml @ 110 mls/hr Q6H PRN IV Refractory N/V 06/09/18 22:15 07/09/18 22:14 Promethazine HCl 25 mg/Sodium Chloride 56 ml @ 110 mls/hr Q6H PRN IV Refractory N/V 06/09/18 22:15 07/09/18 22:14 Temazepam (Restoril) 15 mg HSPRN PRN ORAL Insomnia 06/09/18 22:15 06/16/18 22:14 Assessment/Plan Assessment/Plan Abx: None Assessment: N/v, sore throat- 2ry to gastritis flare- doubt infectious process sore tongue/lips- no obvious ulcer- suspect acid related- monitor for oral herpes Afebrile No leukocytosis -CXR: Bilateral basilar nodular interstitial infiltrates.. Nonspecific as regards etiology. These could be infectious, noninfectious inflammatory, less likely on the basis of pulmonary edema. Correlate with clinical findings -u/a no pyuria severe GERD/gastritis COPD hiatal hernia Plan: -Continue to monitor off abx -Magic mouth wash; if ulcers will start empiric PO Valacyclovir -f/u cx -Monitor CBC/CMP, temperatures -aspiration precautions -GI f/u: plan for EGD Thank you for this consultation. Will continue to follow along with you. Discussed with Yamilet Cornejo M.D. Jun 10, 2018 14:51
[2018-06-10 16:00] VITALS: BP 108/54
--- NOTE | 2018-06-10 16:00 | Diagnostic Imaging Report ---
Indication: Abdominal pain, history of hiatal hernia, gastritis, epigastric pain, nausea, vomiting, elevated lipase Technique: Nava-scale and duplex images of the upper abdomen were obtained Comparison: none Findings: Gallbladder is unremarkable, without stones, wall thickening, nor pericholecystic fluid. Sonographic Triana's sign is negative. Common bile duct measures 3 mm in diameter. No intrahepatic biliary ductal dilatation. Liver demonstrates normal echogenicity, no focal abnormality. Portal vein and hepatic veins are patent. Pancreas is unremarkable. Spleen is unremarkable. Left kidney measures 10.2 cm in length. Right kidney measures 10 cm length. Both kidneys demonstrate normal echogenicity. There is no hydronephrosis. Right kidney demonstrates a 3.3 cm cyst. Cyst are also demonstrated in the left kidney. Left kidney demonstrates a 6 mm lower pole hyperechoic focus without distal acoustic enhancement . Non-aneurysmal abdominal aorta . Impression: Negative for gallstones, dilated ducts, or other significant abnormality Left lower pole 6 mm hypoechoic focus without distal acoustic enhancement, probably a small angiomyolipoma versus parenchymal calcification Bilateral renal cysts incidentally noted
[2018-06-10] MEDS ORDERED: Magic Mouth Wash 60ml (Benadryl/Mylanta/Visc Lido) ORAL SCH (19:00)
--- NOTE | 2018-06-10 19:00 | History and Physical Report ---
DATE OF ADMISSION: 06/09/2018 TIME SEEN: On 06/10/2018 at 2 p.m. CONSULTANTS: 1. . 2. Romel Ziegler M.D. 3. Mary Wallis M.D. 4. Nam Brown M.D. 5. Neal Rocha M.D. CHIEF COMPLAINT: Nausea, vomiting, gastritis, and hiatal hernia. BRIEF HISTORY: This is a 67-year-old female who lives in [place] and visiting [place], had been experiencing one week of increased nausea, vomiting, and gastritis. She does have a history of hiatal hernia, apparently is getting worse. The patient came to [facility], diagnosed with the above, and admitted to medical floor for further treatment. Currently, slightly nauseous in bed, not happy with her food, awaiting endoscopy. PAST MEDICAL HISTORY: Include GERD, hiatal hernia, and pulmonary hypertension. PAST SURGICAL HISTORY: Hysterectomy and bladder lift. ALLERGIES: None. MEDICATIONS: Include pantoprazole, Tylenol, morphine, Zofran, temazepam, diphenhydramine, nitroglycerin, Reglan, lorazepam, and albuterol. SOCIAL HISTORY: No smoking. No alcohol. No intravenous drug abuse. FAMILY HISTORY: Noncontributory. PHYSICAL EXAMINATION: GENERAL: Calm in bed, oriented x3, in no acute distress. VITAL SIGNS: Temperature is 97 degrees, pulse 72, respirations 19, and blood pressure 113/58. CARDIOVASCULAR: No murmur. LUNGS: Distant clear. ABDOMEN: Bowel sounds positive. Nontender. Nondistended. EXTREMITIES: No cyanosis or edema. NEUROLOGIC: The patient moves all extremities, slightly weak. LABORATORY AND DIAGNOSTIC DATA: Initial white count of 4.4, now 2.9; hemoglobin and hematocrit 11/34, and platelets 166,000. BMP showed chloride 108, glucose 114, and albumin 2.4. Urinalysis show positive nitrites. PTT is 32. ASSESSMENT: 1. Nausea. 2. Vomiting. 3. Gastritis. 4. Hiatal hernia. 5. GERD. 6. COPD. 7. UTI. 8. Leukopenia. 9. Malnutrition. 10. Pulmonary hypertension history. PLAN: 1. O2 and pulmonary treatment. 2. Antibiotics per Infectious Disease. 3. Antiemetic p.r.n. 4. PT evaluation. 5. Dietary evaluation. 6. CBC and BMP in the morning. 7. Resume home medications. 8. We will continue to follow the patient. Joss Martinez D.O. DR: CARLO JOB#: [id number] CC:
--- NOTE | 2018-06-10 19:27 | NUR ---
HAND-OFF: Report given to Tiffany TOBIAS.
--- NOTE | 2018-06-10 19:30 | NUR ---
NURSE NOTES: Received patient in no apparent distress. A&OX4. IV site patent and intact. No nausea at this time. Remind NPO midnight, patient fully understood. Bed in lowest position. Call light within reach. Will continue to monitor.
[2018-06-10 20:00] VITALS: BP 122/72
[2018-06-11] VITALS (7 sets, daily range): BP systolic 109–129; BP diastolic 59–70
[2018-06-11] MEDS: D5 1/2NS 1,000 ML IV SCH ×2 (00:27→14:02)
[2018-06-11] MEDS: Metoclopramide 10mg/2ml Inj IVP PRN ×2 (00:27→06:32)
--- NOTE | 2018-06-11 07:10 | NUR ---
HAND-OFF: Report given to Faina TOBIAS.
[2018-06-11 07:16] LABS: HEMATOCRIT 38.9 % (37.0-47.0); HEMOGLOBIN 12.9 G/DL (12.0-16.0); MEAN CORPUSCULAR VOLUME 95 FL (80-99); PLATELET COUNT 174 K/UL (150-450); RED CELL DISTRIBUTION WIDTH 11.7 % (11.6-14.8); WHITE BLOOD COUNT 3.3 K/UL (4.8-10.8)
[2018-06-11 07:36] LABS: ALANINE AMINOTRANSFERASE 20 U/L (12-78); ALBUMIN 2.7 G/DL (3.4-5.0); ALBUMIN/GLOBULIN RATIO 0.7 (1.0-2.7); ALKALINE PHOSPHATASE 59 U/L (46-116); ANION GAP 6 mmol/L (5-15); ASPARTATE AMINO TRANSFERASE 27 U/L (15-37); BILIRUBIN,TOTAL 0.2 MG/DL (0.2-1.0); BLOOD UREA NITROGEN 9 mg/dL (7-18); CARBON DIOXIDE 29 MMOL/L (21-32); CHLORIDE 106 MMOL/L (98-107); CREATININE 1.2 MG/DL (0.55-1.30); POTASSIUM 4.7 MMOL/L (3.5-5.1); SODIUM 141 MMOL/L (136-145)
--- NOTE | 2018-06-11 07:41 | NUR ---
NURSE NOTES: Patient received in stable condition, resting in bed at this time. Alert and oriented, breathing unlabored on room air. Patient had episodes of vomiting over night, but denies feeling nauseous at this time. IV site on left arm patent and intact, fluids draining at 75 cc/hr. Bed locked in low position, call light placed within reach. Will continue to monitor.
[2018-06-11] MEDS ORDERED: Atropine Inj 1mg/10ml Syr IV PRN (08:15)
[2018-06-11] MEDS ORDERED: Midazolam 2mg/2ml Inj IVP PRN (08:15)
[2018-06-11] MEDS ORDERED: DiphenhydrAMINE 50mg/ml Inj IVP PRN (08:15)
[2018-06-11] MEDS ORDERED: fentaNYL 100 mcg/2 mL IV PRN (08:15)
--- NOTE | 2018-06-11 08:15 | Anethesia Preoperative Eval ---
Anesthesia Pre-op PMH/ROS General Date of Evaluation: Jun 11, 2018 Time of Evaluation: 08:12 Anesthesiologist: greg ASA Score: ASA 3 Mallampati Score Class I : Soft palate, uvula, fauces, pillars visible Class II: Soft palate, uvula, fauces visible Class III: Soft palate, base of uvula visible Class IV: Only hard plate visible Mallampati Classification: Class II Surgeon: kaleb Diagnosis: severe gastritis, intractable vomiting Surgical Procedure: egd Family History: no anesthesia problems Allergies: Coded Allergies: No Known Allergies (Unverified , 06/09/18) Medications: see eMAR Patient NPO?: Yes Past Medical History Pulmonary: Reports: asthma, COPD Gastrointestinal/Genitourinary: Reports: GERD Hematology/Immune: Reports: DVT Anesthesia Pre-op Phys. Exam Physician Exam Last Vital Signs Date Time Temp Pulse Resp B/P (MAP) Pulse Ox O2 Delivery O2 Flow Rate FiO2 06/11/18 04:00 98.0 70 17 109/66 (80) 95 06/10/18 21:00 Room Air 06/09/18 23:10 2.0 06/09/18 21:57 28 Constitutional: NAD Neurologic: CN 2-12 intact Cardiovascular: RRR Respiratory: CTA Gastrointestinal: S/NT/ND Airway Exam Mallampati Score: Class II MO: full Neck: flexible TMD: 2fb ROM: full Anesthesia Pre-op A/P Labs Hematology Test 06/11/18 05:20 White Blood Count 3.3 K/UL (4.8-10.8) L Red Blood Count 4.10 M/UL (4.20-5.40) L Hemoglobin 12.9 G/DL (12.0-16.0) Hematocrit 38.9 % (37.0-47.0) Mean Corpuscular Volume 95 FL (80-99) Mean Corpuscular Hemoglobin 31.6 PG (27.0-31.0) H Mean Corpuscular Hemoglobin Concent 33.3 G/DL (32.0-36.0) Red Cell Distribution Width 11.7 % (11.6-14.8) Platelet Count 174 K/UL (150-450) Mean Platelet Volume 5.6 FL (6.5-10.1) L Neutrophils (%) (Auto) % (45.0-75.0) Lymphocytes (%) (Auto) % (20.0-45.0) Monocytes (%) (Auto) % (1.0-10.0) Eosinophils (%) (Auto) % (0.0-3.0) Basophils (%) (Auto) % (0.0-2.0) Neutrophils % (Manual) Pending Lymphocytes % (Manual) Pending Platelet Estimate Pending Platelet Morphology Pending Erythrocyte Sedimentation Rate Pending Coagulation Test 06/11/18 05:20 Prothrombin Time 10.6 SEC (9.30-11.50) Prothromb Time International Ratio 1.0 (0.9-1.1) Activated Partial Thromboplast Time 31 SEC (23-33) Chemistry Test 06/11/18 05:20 Sodium Level 141 MMOL/L (136-145) Potassium Level 4.7 MMOL/L (3.5-5.1) Chloride Level 106 MMOL/L (98-107) Carbon Dioxide Level 29 MMOL/L (21-32) Anion Gap 6 mmol/L (5-15) Blood Urea Nitrogen 9 mg/dL (7-18) Creatinine 1.2 MG/DL (0.55-1.30) Estimat Glomerular Filtration Rate 44.5 mL/min (>60) Glucose Level 100 MG/DL (74-106) Calcium Level 9.0 MG/DL (8.5-10.1) Phosphorus Level 3.0 MG/DL (2.5-4.9) Magnesium Level 2.1 MG/DL (1.8-2.4) Total Bilirubin 0.2 MG/DL (0.2-1.0) Aspartate Amino Transf (AST/SGOT) 27 U/L (15-37) Alanine Aminotransferase (ALT/SGPT) 20 U/L (12-78) Alkaline Phosphatase 59 U/L (46-116) C-Reactive Protein, Quantitative 1.0 mg/dL (0.00-0.90) H Total Protein 6.5 G/DL (6.4-8.2) Albumin 2.7 G/DL (3.4-5.0) L Globulin 3.8 g/dL Albumin/Globulin Ratio 0.7 (1.0-2.7) L Amylase Level 30 U/L (25-115) Lipase 121 U/L (73-393) Risk Assessment & Plan Assessment: asa3 Plan: mac Status Change Before Surgery: Cammy Mortensen MD Jun 11, 2018 08:15
[2018-06-11] MEDS: Heparin 5000 units/ml inj SUBQ SCH (08:41)
[2018-06-11] MEDS: Pantoprazole Inj IV SCH (08:48)
--- NOTE | 2018-06-11 09:10 | Anethesia Preoperative Eval ---
Anesthesia Pre-op PMH/ROS General Date of Evaluation: Jun 11, 2018 Time of Evaluation: 09:08 Anesthesiologist: Zelda Villalobos CRNA ASA Score: ASA 3 Mallampati Score Class I : Soft palate, uvula, fauces, pillars visible Class II: Soft palate, uvula, fauces visible Class III: Soft palate, base of uvula visible Class IV: Only hard plate visible Surgeon: Karlie Diagnosis: severe gastritis, intractiable vomiting, hiatal hernia Surgical Procedure: EGD diagnostic Anesthesia History: none Family History: no anesthesia problems Allergies: Coded Allergies: No Known Allergies (Unverified , 06/09/18) Medications: see eMAR Patient NPO?: Yes NPO Date: Jun 11, 2018 NPO Time: 00:00 Past Medical History Cardiovascular: Denies: HTN, CAD, [place], valve dz, arrhythmia, other Pulmonary: Reports: asthma, COPD, other - pulmonary HTN; Denies: BAM Gastrointestinal/Genitourinary: Reports: GERD, other - hiatal hernia; Denies: CRI, ESRD Endocrine: Denies: DM, hypothyroidism, steroids, other Hematology/Immune: Denies: anemia, DVT, bleeding disorder, other Musculoskeletal/Integumentary: Denies: OA, RA, DJD, DDD, edema, other Anesthesia Pre-op Phys. Exam Physician Exam Last Vital Signs Date Time Temp Pulse Resp B/P (MAP) Pulse Ox O2 Delivery O2 Flow Rate FiO2 06/11/18 08:53 94 Room Air 21 06/11/18 04:00 98.0 70 17 109/66 (80) 06/09/18 23:10 2.0 Anesthesia Pre-op A/P Labs Hematology Test 06/11/18 05:20 White Blood Count 3.3 K/UL (4.8-10.8) L Red Blood Count 4.10 M/UL (4.20-5.40) L Hemoglobin 12.9 G/DL (12.0-16.0) Hematocrit 38.9 % (37.0-47.0) Mean Corpuscular Volume 95 FL (80-99) Mean Corpuscular Hemoglobin 31.6 PG (27.0-31.0) H Mean Corpuscular Hemoglobin Concent 33.3 G/DL (32.0-36.0) Red Cell Distribution Width 11.7 % (11.6-14.8) Platelet Count 174 K/UL (150-450) Mean Platelet Volume 5.6 FL (6.5-10.1) L Neutrophils (%) (Auto) % (45.0-75.0) Lymphocytes (%) (Auto) % (20.0-45.0) Monocytes (%) (Auto) % (1.0-10.0) Eosinophils (%) (Auto) % (0.0-3.0) Basophils (%) (Auto) % (0.0-2.0) Neutrophils % (Manual) Pending Lymphocytes % (Manual) Pending Platelet Estimate Pending Platelet Morphology Pending Erythrocyte Sedimentation Rate Pending Coagulation Test 06/11/18 05:20 Prothrombin Time 10.6 SEC (9.30-11.50) Prothromb Time International Ratio 1.0 (0.9-1.1) Activated Partial Thromboplast Time 31 SEC (23-33) Chemistry Test 06/11/18 05:20 Sodium Level 141 MMOL/L (136-145) Potassium Level 4.7 MMOL/L (3.5-5.1) Chloride Level 106 MMOL/L (98-107) Carbon Dioxide Level 29 MMOL/L (21-32) Anion Gap 6 mmol/L (5-15) Blood Urea Nitrogen 9 mg/dL (7-18) Creatinine 1.2 MG/DL (0.55-1.30) Estimat Glomerular Filtration Rate 44.5 mL/min (>60) Glucose Level 100 MG/DL (74-106) Calcium Level 9.0 MG/DL (8.5-10.1) Phosphorus Level 3.0 MG/DL (2.5-4.9) Magnesium Level 2.1 MG/DL (1.8-2.4) Total Bilirubin 0.2 MG/DL (0.2-1.0) Aspartate Amino Transf (AST/SGOT) 27 U/L (15-37) Alanine Aminotransferase (ALT/SGPT) 20 U/L (12-78) Alkaline Phosphatase 59 U/L (46-116) C-Reactive Protein, Quantitative 1.0 mg/dL (0.00-0.90) H Total Protein 6.5 G/DL (6.4-8.2) Albumin 2.7 G/DL (3.4-5.0) L Globulin 3.8 g/dL Albumin/Globulin Ratio 0.7 (1.0-2.7) L Amylase Level 30 U/L (25-115) Lipase 121 U/L (73-393) Zelda Villalobos CRNA Jun 11, 2018 09:10
[2018-06-11] MEDS ORDERED: Propofol 200mg/20ml IV ONE (11:00)
[2018-06-11] MEDS ORDERED: Lidocaine 1% MPF 10mg/ml 5ml ONE (11:00)
--- NOTE | 2018-06-11 11:07 | General Progress Note ---
Assessment/Plan Problem List: (1) GERD (gastroesophageal reflux disease) ICD Codes: K21.9 - Gastro-esophageal reflux disease without esophagitis SNOMED: 691765136 (2) Gastritis ICD Codes: K29.70 - Gastritis, unspecified, without bleeding SNOMED: 1341454 (3) Nausea, vomiting, and diarrhea ICD Codes: R11.2 - Nausea with vomiting, unspecified; R19.7 - Diarrhea, unspecified SNOMED: 7971948 (4) COPD (chronic obstructive pulmonary disease) ICD Codes: J44.9 - Chronic obstructive pulmonary disease, unspecified SNOMED: 79646119 (5) Intractable nausea and vomiting ICD Codes: R11.2 - Nausea with vomiting, unspecified SNOMED: 498601888 Assessment/Plan plan EGD for today Subjective ROS Limited/Unobtainable: Yes Allergies: Coded Allergies: No Known Allergies (Unverified , 06/09/18) Objective Last 24 Hour Vital Signs Date Time Temp Pulse Resp B/P (MAP) Pulse Ox O2 Delivery O2 Flow Rate FiO2 06/11/18 09:00 Room Air 06/11/18 08:53 94 Room Air 21 06/11/18 08:53 Room Air 21 06/11/18 08:00 98.1 72 18 112/70 (84) 97 06/11/18 04:00 98.0 70 17 109/66 (80) 95 06/11/18 00:00 19 06/10/18 21:00 Room Air 06/10/18 20:00 97.7 74 18 122/72 (89) 96 06/10/18 16:00 97.8 71 18 108/54 (72) 99 06/10/18 12:00 97.9 72 19 113/58 (76) 99 Intake and Output 06/10/18 06/11/18 19:00 07:00 Intake Total 315 ml 495 ml Balance 315 ml 495 ml Intake Oral 240 ml 120 ml IV Total 75 ml 375 ml # Voids 7 4 # Bowel Movements 1 Laboratory Tests 06/11/18 05:20: White Blood Count 3.3L, Red Blood Count 4.10L, Hemoglobin 12.9, Hematocrit 38.9 , Mean Corpuscular Volume 95, Mean Corpuscular Hemoglobin 31.6H, Mean Corpuscular Hemoglobin Concent 33.3, Red Cell Distribution Width 11.7, Platelet Count 174, Mean Platelet Volume 5.6L, Neutrophils (%) (Auto) , Lymphocytes (%) ( Auto) , Monocytes (%) (Auto) , Eosinophils (%) (Auto) , Basophils (%) (Auto) , Neutrophils % (Manual) [Pending], Lymphocytes % (Manual) [Pending], Platelet Estimate [Pending], Platelet Morphology [Pending], Erythrocyte Sedimentation Rate 51H, Prothrombin Time 10.6, Prothromb Time International Ratio 1.0, Activated Partial Thromboplast Time 31, Sodium Level 141, Potassium Level 4.7, Chloride Level 106, Carbon Dioxide Level 29, Anion Gap 6, Blood Urea Nitrogen 9 , Creatinine 1.2, Estimat Glomerular Filtration Rate 44.5, Glucose Level 100, Calcium Level 9.0, Phosphorus Level 3.0, Magnesium Level 2.1, Total Bilirubin 0.2, Aspartate Amino Transf (AST/SGOT) 27, Alanine Aminotransferase (ALT/SGPT) 20, Alkaline Phosphatase 59, C-Reactive Protein, Quantitative 1.0H, Total Protein 6.5, Albumin 2.7L, Globulin 3.8, Albumin/Globulin Ratio 0.7L, Amylase Level 30, Lipase 121, HIV (1&2) Antibody Rapid Negative Height (Feet): 5 Height (Inches): 5.00 Weight (Pounds): 149 General Appearance: alert EENT: normal ENT inspection Neck: supple Cardiovascular: normal rate Respiratory/Chest: decreased breath sounds Abdomen: normal bowel sounds, non tender, soft Extremities: non-tender Romel Ziegler MD Jun 11, 2018 11:07
--- NOTE | 2018-06-11 11:08 | Pre-Procedure Note/Attestation ---
Pre-Procedure Note/Attestation Complete Prior to Procedure Planned Procedure: not applicable Procedure Narrative: EGD Indications for Procedure Pre-Operative Diagnosis: GERD Attestation I attest that I discussed the nature of the procedure; its benefits; risks and complications; and alternatives (and the risks and benefits of such alternatives ), prior to the procedure, with the patient (or the patient's legal service support representative). I attest that, if there was a reasonable possibility of needing a blood transfusion, the patient (or the patient's legal service support representative) was given the [facility] standardized written summary, pursuant to the [place] Blood Safety Act ([place] Health and Safety Code # 1645, as amended). I attest that I re-evaluated the patient just prior to the surgery and that there has been no change in the patient's H&P, except as documented below: Romel Ziegler MD Jun 11, 2018 11:08
[2018-06-11] MEDS ORDERED: NS 500ML IVPB ONE (11:18)
--- NOTE | 2018-06-11 11:50 | Endoscopy Procedure Note ---
Endoscopy Procedure Note General Indication for Procedure: gerd Procedures Performed: EGD Operative Findings/Diagnosis: gastritis Specimen: yes Pt Tolerated Procedure Well: Yes Estimated Blood Loss: none Anesthesia Anesthesiologist: greg Anesthesia: MAC Inserted Devices Implant(s) used?: No GI Core Measures 50 yrs or older w/o bx or poly: Not Applicable 10yrs. F/U not recommended: Not Applicable Romel Ziegler MD Jun 11, 2018 11:50
--- NOTE | 2018-06-11 12:21 | Immediate Post-Op Evaluation ---
Immediate Post-Op Evalulation Immediate Post-Op Evalulation Procedure: egd w/bx Date of Evaluation: Jun 11, 2018 Time of Evaluation: 12:02 IV Fluids: 325ml 0.9ns Blood Products: none Estimated Blood Loss: negligible Blood Pressure Systolic: 114 Blood Pressure Diastolic: 60 Pulse Rate: 60 Respiratory Rate: 18 O2 Sat by Pulse Oximetry: 100 Temperature (Fahrenheit): 98.1 Pain Score (1-10): 0 Nausea: No Vomiting: No Complications none Patient Status: awake, reacts, patent Hydration Status: adequate Drug: Cammy Mendez MD Jun 11, 2018 12:21
--- NOTE | 2018-06-11 12:24 | 48 Hour Post Anesthesia Eval ---
Post Anesthesia Evaluation Procedure: egd w/bx Date of Evaluation: Jun 11, 2018 Time of Evaluation: 12:04 Blood Pressure Systolic: 112 0: 60 Pulse Rate: 62 Respiratory Rate: 18 Temperature (Fahrenheit): 98.1 O2 Sat by Pulse Oximetry: 100 Airway: patent Nausea: No Vomiting: No Pain Intensity: 0 Hydration Status: adequate Cardiopulmonary Status: stable Mental Status/LOC: patient returned to baseline Post-Anesthesia Complications: none Follow-up care needed: N/A Cammy Demarco MD Jun 11, 2018 12:24
--- NOTE | 2018-06-11 13:14 | General Progress Note ---
Assessment/Plan Problem List: (1) Nausea, vomiting, and diarrhea ICD Codes: R11.2 - Nausea with vomiting, unspecified; R19.7 - Diarrhea, unspecified SNOMED: 0689405 (2) Gastritis ICD Codes: K29.70 - Gastritis, unspecified, without bleeding SNOMED: 5372199 (3) GERD (gastroesophageal reflux disease) ICD Codes: K21.9 - Gastro-esophageal reflux disease without esophagitis SNOMED: 773226969 (4) COPD (chronic obstructive pulmonary disease) ICD Codes: J44.9 - Chronic obstructive pulmonary disease, unspecified SNOMED: 77292585 Status: stable, progressing Assessment/Plan dc if clear by gi and heme per pt request Subjective Constitutional: Reports: weakness Allergies: Coded Allergies: No Known Allergies (Unverified , 06/09/18) All Systems: reviewed and negative except above Subjective s/p egd wants to go home Objective Last 24 Hour Vital Signs Date Time Temp Pulse Resp B/P (MAP) Pulse Ox O2 Delivery O2 Flow Rate FiO2 06/11/18 12:40 97.8 63 16 129/62 100 Room Air 06/11/18 12:25 67 18 115/59 100 Room Air 06/11/18 12:24 62 18 100 06/11/18 12:21 60 18 100 06/11/18 12:10 65 20 120/64 100 Room Air 06/11/18 12:05 61 15 119/66 100 Room Air 06/11/18 11:50 97.6 60 18 114/60 100 Room Air 06/11/18 09:00 Room Air 06/11/18 08:53 94 Room Air 21 06/11/18 08:53 Room Air 21 06/11/18 08:00 98.1 72 18 112/70 (84) 97 06/11/18 04:00 98.0 70 17 109/66 (80) 95 06/11/18 00:00 19 06/10/18 21:00 Room Air 06/10/18 20:00 97.7 74 18 122/72 (89) 96 06/10/18 16:00 97.8 71 18 108/54 (72) 99 Intake and Output 06/10/18 06/11/18 19:00 07:00 Intake Total 315 ml 495 ml Balance 315 ml 495 ml Intake Oral 240 ml 120 ml IV Total 75 ml 375 ml # Voids 7 4 # Bowel Movements 1 Laboratory Tests 06/11/18 05:20: White Blood Count 3.3L, Red Blood Count 4.10L, Hemoglobin 12.9, Hematocrit 38.9 , Mean Corpuscular Volume 95, Mean Corpuscular Hemoglobin 31.6H, Mean Corpuscular Hemoglobin Concent 33.3, Red Cell Distribution Width 11.7, Platelet Count 174, Mean Platelet Volume 5.6L, Neutrophils (%) (Auto) , Lymphocytes (%) ( Auto) , Monocytes (%) (Auto) , Eosinophils (%) (Auto) , Basophils (%) (Auto) , Differential Total Cells Counted 100, Neutrophils % (Manual) 47, Lymphocytes % ( Manual) 38, Monocytes % (Manual) 13H, Eosinophils % (Manual) 2, Basophils % ( Manual) 0, Band Neutrophils 0, Platelet Estimate Adequate, Platelet Morphology Normal, Red Blood Cell Morphology Normal, Erythrocyte Sedimentation Rate 51H, Prothrombin Time 10.6, Prothromb Time International Ratio 1.0, Activated Partial Thromboplast Time 31, Sodium Level 141, Potassium Level 4.7, Chloride Level 106, Carbon Dioxide Level 29, Anion Gap 6, Blood Urea Nitrogen 9, Creatinine 1.2, Estimat Glomerular Filtration Rate 44.5, Glucose Level 100, Calcium Level 9.0, Phosphorus Level 3.0, Magnesium Level 2.1, Total Bilirubin 0.2, Aspartate Amino Transf (AST/SGOT) 27, Alanine Aminotransferase (ALT/SGPT) 20, Alkaline Phosphatase 59, C-Reactive Protein, Quantitative 1.0H, Total Protein 6.5, Albumin 2.7L, Globulin 3.8, Albumin/Globulin Ratio 0.7L, Amylase Level 30, Lipase 121, HIV (1&2) Antibody Rapid Negative Height (Feet): 5 Height (Inches): 5.00 Weight (Pounds): 149 General Appearance: alert EENT: normal ENT inspection Neck: normal alignment Cardiovascular: normal peripheral pulses, normal rate, regular rhythm Respiratory/Chest: chest wall non-tender, lungs clear, normal breath sounds Abdomen: normal bowel sounds, soft Extremities: normal inspection Edema: no edema noted Arm (L), no edema noted Arm (R), no edema noted Leg (L), no edema noted Leg (R), no edema noted Pedal (L), no edema noted Pedal (R), no edema noted Generalized Neurologic: responsive, motor weakness Skin: normal pigmentation, warm/dry Joss Martinez DO Jun 11, 2018 13:14
--- NOTE | 2018-06-11 14:38 | NUR ---
NURSE NOTES: Patient discharged to home, ride arranged via [employer] on patient's personal cellphone. Patient observed to be in stable condition, alert and oriented, steady gait. IV site safely removed, covered with gauze and tape. Denies respiratory distress, dizziness and pain at this time. Discharge packet and after care instructions provided. Belongings reviewed and confirmed with the patient.
--- NOTE | 2018-06-11 14:47 | Consultation ---
History of Present Illness General Date patient seen: Jun 11, 2018 Chief Complaint: Nausea, Vomiting, and Diarrhea Referring physician: JUSTINE GALARZA Reason for Consultation: inpatient management Present Illness Allergies: Coded Allergies: No Known Allergies (Unverified , 06/09/18) Medication History Miscellaneous Medications Budesonide/Formoterol Fumarate (Symbicort 160-4.5 Mcg Inhaler), 1 PUFF IH, ( Reported) Patient History Healthcare decision maker Resuscitation status Full Code Advanced Directive on File Physical Exam Last 24 Hour Vital Signs Date Time Temp Pulse Resp B/P (MAP) Pulse Ox O2 Delivery O2 Flow Rate FiO2 06/11/18 12:40 97.8 63 16 129/62 100 Room Air 06/11/18 12:25 67 18 115/59 100 Room Air 06/11/18 12:24 62 18 100 06/11/18 12:21 60 18 100 06/11/18 12:10 65 20 120/64 100 Room Air 06/11/18 12:05 61 15 119/66 100 Room Air 06/11/18 11:50 97.6 60 18 114/60 100 Room Air 06/11/18 09:00 Room Air 06/11/18 08:53 94 Room Air 21 06/11/18 08:53 Room Air 21 06/11/18 08:00 98.1 72 18 112/70 (84) 97 06/11/18 04:00 98.0 70 17 109/66 (80) 95 06/11/18 00:00 19 06/10/18 21:00 Room Air 06/10/18 20:00 97.7 74 18 122/72 (89) 96 06/10/18 16:00 97.8 71 18 108/54 (72) 99 Intake and Output 06/10/18 06/11/18 19:00 07:00 Intake Total 315 ml 495 ml Balance 315 ml 495 ml Intake Oral 240 ml 120 ml IV Total 75 ml 375 ml # Voids 7 4 # Bowel Movements 1 Laboratory Tests Test 06/11/18 05:20 White Blood Count 3.3 K/UL (4.8-10.8) L Red Blood Count 4.10 M/UL (4.20-5.40) L Hemoglobin 12.9 G/DL (12.0-16.0) Hematocrit 38.9 % (37.0-47.0) Mean Corpuscular Volume 95 FL (80-99) Mean Corpuscular Hemoglobin 31.6 PG (27.0-31.0) H Mean Corpuscular Hemoglobin Concent 33.3 G/DL (32.0-36.0) Red Cell Distribution Width 11.7 % (11.6-14.8) Platelet Count 174 K/UL (150-450) Mean Platelet Volume 5.6 FL (6.5-10.1) L Neutrophils (%) (Auto) % (45.0-75.0) Lymphocytes (%) (Auto) % (20.0-45.0) Monocytes (%) (Auto) % (1.0-10.0) Eosinophils (%) (Auto) % (0.0-3.0) Basophils (%) (Auto) % (0.0-2.0) Differential Total Cells Counted 100 Neutrophils % (Manual) 47 % (45-75) Lymphocytes % (Manual) 38 % (20-45) Monocytes % (Manual) 13 % (1-10) H Eosinophils % (Manual) 2 % (0-3) Basophils % (Manual) 0 % (0-2) Band Neutrophils 0 % (0-8) Platelet Estimate Adequate Platelet Morphology Normal Red Blood Cell Morphology Normal Erythrocyte Sedimentation Rate 51 MM/HR (0-30) H Prothrombin Time 10.6 SEC (9.30-11.50) Prothromb Time International Ratio 1.0 (0.9-1.1) Activated Partial Thromboplast Time 31 SEC (23-33) Sodium Level 141 MMOL/L (136-145) Potassium Level 4.7 MMOL/L (3.5-5.1) Chloride Level 106 MMOL/L (98-107) Carbon Dioxide Level 29 MMOL/L (21-32) Anion Gap 6 mmol/L (5-15) Blood Urea Nitrogen 9 mg/dL (7-18) Creatinine 1.2 MG/DL (0.55-1.30) Estimat Glomerular Filtration Rate 44.5 mL/min (>60) Glucose Level 100 MG/DL (74-106) Calcium Level 9.0 MG/DL (8.5-10.1) Phosphorus Level 3.0 MG/DL (2.5-4.9) Magnesium Level 2.1 MG/DL (1.8-2.4) Total Bilirubin 0.2 MG/DL (0.2-1.0) Aspartate Amino Transf (AST/SGOT) 27 U/L (15-37) Alanine Aminotransferase (ALT/SGPT) 20 U/L (12-78) Alkaline Phosphatase 59 U/L (46-116) C-Reactive Protein, Quantitative 1.0 mg/dL (0.00-0.90) H Total Protein 6.5 G/DL (6.4-8.2) Albumin 2.7 G/DL (3.4-5.0) L Globulin 3.8 g/dL Albumin/Globulin Ratio 0.7 (1.0-2.7) L Amylase Level 30 U/L (25-115) Lipase 121 U/L (73-393) HIV (1&2) Antibody Rapid Negative (NEGATIVE) Microbiology Date/Time Source Procedure Growth Status 06/10/18 21:50 Nasopharynx Influenza Types A,B Antigen ([facility]) - Final Complete Height (Feet): 5 Height (Inches): 5.00 Weight (Pounds): 149 Assessment/Plan Assessment/Plan Hematology Consultation Date patient seen: 06/11/18 Chief Complaint: Nausea, Vomiting, and Diarrhea Referring physician: JUSTINE GALARZA Reason for Consultation: leukopenia eval HPI 67 y/o F with hx of severe GERD/gastritis, COPD, hiatal hernia presents to ED on 06/09 with 3 days of progressive sore throat (burning) and recurrent nausea, vomiting and epigastric pain. Noted to have leukopenia and heme was consulted. Denied f/c, dysuria, hematuria. Allergies: No Known Allergies (Unverified , 06/09/18) Miscellaneous Medications Budesonide/Formoterol Fumarate (Symbicort 160-4.5 Mcg Inhaler), 1 PUFF IH, ( Reported) Patient History Healthcare decision maker Resuscitation status Full Code Advanced Directive on File Patient History Narrative Pmhx: as above Shx:: Denies: smoking, alcohol use, drug use, other Fhx: non contributory Physical Exam General Appearance: well appearing HEENT: normocephalic normal ENT inspection Neck: supple Respiratory: normal breath sounds, no respiratory distress Cardiovascular: normal rate Gastrointestinal: normal inspection, non tender, soft Genitourinary: no CVA tenderness Musculoskeletal: normal inspection, back normal Neurologic: normal inspection, alert, oriented x3, responsive Skin: normal inspection, normal color, no rash Last 24 Hour Vital Signs Date Time Temp Pulse Resp B/P (MAP) Pulse Ox O2 Delivery O2 Flow Rate FiO2 06/10/18 12:00 97.9 72 19 113/58 (76) 99 06/10/18 09:00 Room Air 06/10/18 08:00 98.2 74 19 109/56 (73) 98 06/10/18 03:48 98.0 69 18 100/51 (67) 99 06/10/18 00:00 97.7 65 16 101/47 (65) 97 06/09/18 23:10 Nasal Cannula 2.0 06/09/18 22:04 98.5 80 18 135/74 (94) 96 06/09/18 21:57 Nasal Cannula 2.0 28 06/09/18 21:57 98 Nasal Cannula 2.0 28 06/09/18 21:30 98.2 77 16 135/74 100 Room Air 21 06/09/18 21:00 98.1 80 17 130/72 100 Room Air 06/09/18 20:08 84 16 100 Room Air 21 06/09/18 19:43 75 17 95 Room Air 21 06/09/18 19:43 75 17 Room Air 21 06/09/18 19:30 98.2 77 15 135/74 97 Room Air 06/09/18 16:13 98.1 74 14 111/62 96 Room Air 06/09/18 16:03 98.1 86 18 112/73 96 Room Air Intake and Output 06/09/18 06/10/18 19:00 07:00 Intake Total 2625 ml Balance 2625 ml Intake Oral 25 ml IV Total 2600 ml # Voids 3 Laboratory Tests Test 06/09/18 17:19 06/09/18 19:15 06/10/18 05:45 White Blood Count 4.4 K/UL (4.8-10.8) L 2.9 K/UL (4.8-10.8) L Red Blood Count 4.05 M/UL (4.20-5.40) L 3.62 M/UL (4.20-5.40) L Hemoglobin 12.8 G/DL (12.0-16.0) 11.5 G/DL (12.0-16.0) L Hematocrit 38.3 % (37.0-47.0) 34.8 % (37.0-47.0) L Mean Corpuscular Volume 94 FL (80-99) 96 FL (80-99) Mean Corpuscular Hemoglobin 31.5 PG (27.0-31.0) H 31.8 PG (27.0-31.0) H Mean Corpuscular Hemoglobin Concent 33.3 G/DL (32.0-36.0) 33.0 G/DL (32.0-36.0) Red Cell Distribution Width 11.3 % (11.6-14.8) L 11.6 % (11.6-14.8) Platelet Count 190 K/UL (150-450) 166 K/UL (150-450) Mean Platelet Volume 5.7 FL (6.5-10.1) L 5.7 FL (6.5-10.1) L Neutrophils (%) (Auto) 54.6 % (45.0-75.0) % (45.0-75.0) Lymphocytes (%) (Auto) 32.8 % (20.0-45.0) % (20.0-45.0) Monocytes (%) (Auto) 11.3 % (1.0-10.0) H % (1.0-10.0) Eosinophils (%) (Auto) 0.4 % (0.0-3.0) % (0.0-3.0) Basophils (%) (Auto) 0.9 % (0.0-2.0) % (0.0-2.0) Sodium Level 138 MMOL/L (136-145) 141 MMOL/L (136-145) Potassium Level 4.1 MMOL/L (3.5-5.1) 4.0 MMOL/L (3.5-5.1) Chloride Level 104 MMOL/L (98-107) 108 MMOL/L (98-107) H Carbon Dioxide Level 29 MMOL/L (21-32) 25 MMOL/L (21-32) Anion Gap 5 mmol/L (5-15) 8 mmol/L (5-15) Blood Urea Nitrogen 22 mg/dL (7-18) H 15 mg/dL (7-18) Creatinine 1.3 MG/DL (0.55-1.30) 1.1 MG/DL (0.55-1.30) Estimat Glomerular Filtration Rate 40.6 mL/min (>60) 49.3 mL/min (>60) Glucose Level 92 MG/DL (74-106) 114 MG/DL (74-106) H Calcium Level 8.8 MG/DL (8.5-10.1) 8.0 MG/DL (8.5-10.1) L Total Bilirubin 0.2 MG/DL (0.2-1.0) 0.1 MG/DL (0.2-1.0) L Aspartate Amino Transf (AST/SGOT) 31 U/L (15-37) 28 U/L (15-37) Alanine Aminotransferase (ALT/SGPT) 22 U/L (12-78) 18 U/L (12-78) Alkaline Phosphatase 61 U/L (46-116) 53 U/L (46-116) Total Protein 6.3 G/DL (6.4-8.2) L 5.7 G/DL (6.4-8.2) L Albumin 2.7 G/DL (3.4-5.0) L 2.4 G/DL (3.4-5.0) L Globulin 3.6 g/dL 3.3 g/dL Albumin/Globulin Ratio 0.8 (1.0-2.7) L 0.7 (1.0-2.7) L Lipase 171 U/L (73-393) 113 U/L (73-393) Urine Color Pale yellow Urine Appearance Clear Urine pH 6 (4.5-8.0) Urine Specific [place] 1.010 (1.005-1.035) Urine Protein Negative (NEGATIVE) Urine Glucose (UA) Negative (NEGATIVE) Urine Ketones Negative (NEGATIVE) Urine Blood Negative (NEGATIVE) Urine Nitrite Positive (NEGATIVE) H Urine Bilirubin Negative (NEGATIVE) Urine Urobilinogen Normal MG/DL (0.0-1.0) Urine Leukocyte Esterase Negative (NEGATIVE) Urine RBC 0-2 /HPF (0 - 2) Urine WBC 2-4 /HPF (0 - 2) Urine Squamous Epithelial Cells Occasional /LPF Urine Bacteria Many /HPF (NONE) H Differential Total Cells Counted 100 Neutrophils % (Manual) 51 % (45-75) Lymphocytes % (Manual) 36 % (20-45) Monocytes % (Manual) 13 % (1-10) H Eosinophils % (Manual) 0 % (0-3) Basophils % (Manual) 0 % (0-2) Band Neutrophils 0 % (0-8) Platelet Estimate Decreased L Platelet Morphology Normal Red Blood Cell Morphology Normal Activated Partial Thromboplast Time 32 SEC (23-33) Amylase Level 27 U/L (25-115) Hepatitis A IgM Antibody Pending Hepatitis B Surface Antigen Pending Hepatitis B Core IgM Antibody Pending Hepatitis C Antibody Pending Height (Feet): 5 Height (Inches): 3.00 Weight (Pounds): 149 Medications Current Medications Medications (Trade) Dose Ordered Sig/[place] Route PRN Reason Start Time Stop Time Status Last Admin Dose Admin Acetaminophen (Tylenol) 650 mg Q4H PRN ORAL fever 06/09/18 22:15 07/09/18 22:14 Al Hydroxide/Mg Hydroxide (Mylanta II) 30 ml Q6H PRN ORAL dyspepsia 06/09/18 22:15 07/09/18 22:14 Dextrose (Dextrose 50%) 25 ml Q30M PRN IV Hypoglycemia 06/09/18 22:15 07/09/18 22:14 Dextrose (Dextrose 50%) 50 ml Q30M PRN IV Hypoglycemia 06/09/18 22:15 07/09/18 22:14 Dextrose/Sodium Chloride 1,000 ml @ 75 mls/hr [id number] IV 06/09/18 22:02 07/09/18 22:01 06/09/18 22:39 Diphenhydramine HCl (Benadryl) 25 mg Q6H PRN ORAL Itching/Pruritis 06/09/18 22:15 07/09/18 22:14 Heparin Sodium (Porcine) (Heparin 5000 units/ml) 5,000 units EVERY 12 HOURS SUBQ 06/10/18 09:00 07/10/18 08:59 06/10/18 08:57 Lorazepam (Ativan 2mg/ml 1ml) 1 mg EVERY 4 HOURS PRN IV agitation 06/09/18 22:15 06/16/18 22:14 Metoclopramide HCl (Reglan) 10 mg EVERY 6 HOURS PRN IVP servere nauasea 06/09/18 22:15 07/09/18 22:14 Morphine Sulfate (Morphine Sulfate) 2 mg EVERY 4 HOURS PRN IVP severe Pain (Pain Scale 7-10) 06/09/18 22:15 06/16/18 22:14 Nitroglycerin (Ntg) 0.4 mg Q5M X 3 DOSES PRN SL Prn Chest Pain 06/09/18 22:15 07/09/18 22:14 Ondansetron HCl (Zofran) 4 mg Q6H PRN IVP Nausea & Vomiting 06/09/18 22:15 07/09/18 22:14 Pantoprazole (Protonix) 40 mg DAILY IV 06/10/18 09:00 07/10/18 08:59 06/10/18 08:52 Polyethylene Glycol (Miralax) 17 gm HSPRN PRN ORAL Constipation 06/09/18 22:15 07/09/18 22:14 Promethazine HCl 12.5 mg/Sodium Chloride 55.5 ml @ 110 mls/hr Q6H PRN IV Refractory N/V 06/09/18 22:15 07/09/18 22:14 Promethazine HCl 25 mg/Sodium Chloride 56 ml @ 110 mls/hr Q6H PRN IV Refractory N/V 06/09/18 22:15 07/09/18 22:14 Temazepam (Restoril) 15 mg HSPRN PRN ORAL Insomnia 06/09/18 22:15 06/16/18 22:14 Assessment/Plan # Leukopenia - wbc inthe 3-4 range, per patient is new to her, could be related to infeciton or other cause --> hiv and hepatitis panel negative --> us of the abd shows no cirrhosis or hsm --> CXR: Bilateral basilar nodular interstitial infiltrates.. Nonspecific as regards etiology. These could be infectious, noninfectious inflammatory, less likely on the basis of pulmonary edema. Correlate with clinical findings -u/a no pyuria # Severe GERD/gastritis --> on ppi --> as per egd today, shows no gastritis, okay for dc # COPD # hiatal hernia The timing of this note does not necessarily reflect the time of the patient was seen. Greatly appreciate consultation! Neal Rocha MD Jun 11, 2018 14:47
--- NOTE | 2018-06-11 15:30 | Procedure Note ---
DATE OF PROCEDURE: 06/11/2018 SURGEON: Romel Ziegler M.D. PROCEDURE: Upper endoscopy with biopsy. ANESTHESIA: Per Dr. Mansfield. INSTRUMENT: Olympus adult flexible upper endoscope. INDICATION: Anemia, GERD. REASON FOR PROCEDURE: The procedure, risks, benefits, and possible consequences, including hemorrhage, aspiration, perforation and infection, and alternative treatments, were explained to the patient/legal guardian by Dr. Romel Ziegler and the patient/legal guardian understood and accepted these risks. DESCRIPTION OF PROCEDURE: After informed consent was obtained and the patient was adequately sedated, the Olympus upper endoscope was advanced from mouth into the second portion of the duodenum and retroflexion was performed in the stomach. The patient has 4 centimeter hiatal hernia. In the stomach, there was diffuse gastritis. Random biopsy from body and antrum was obtained to rule out H. pylori infection. Otherwise, the rest of the upper endoscopy examination grossly looked within normal limits. The patient tolerated the procedure very well without any complication. SUMMARY OF FINDINGS: 1. A 4 cm hiatal hernia. 2. Gastritis, status post biopsy. RECOMMENDATION: Follow up biopsy results and treat accordingly. I want to thank, Dr. Joss Martinez for this kind referral. Romel Ziegler M.D. DR: Maurisio JOB#: [id number] CC: Joss Martinez D.O.
[2018-06-11] MEDS ORDERED: Levofloxacin 250mg/D5W 50ml IVPB SCH (18:00)
--- NOTE | 2018-06-14 15:37 | Discharge Summary ---
Discharge Summary Discharge Summary _ DATE OF ADMISSION: 06/09/2018 DATE OF DISCHARGE: 06/11/2018 DISCHARGED BY: Dr. Martinez REASON FOR ADMISSION: 67 years old female with past medical history of COPD, gastritis, hiatal hernia , GERD, presented to the emergency department with chief complaint of 3 days of progressively worsening burning pain in her throat with recurrent nausea , vomiting , and epigastric pain. She denied fever and chills. She denied dysuria and hematuria. She was admitted for intractable nausea and vomiting and inability to eat. CONSULTANTS: pulmonary Dr. Wallis ID specialist Dr. Brown GI specialist Dr. Ziegler knot picker cloth/oncologist Dr. Rocha [facility]: Patient admitted to medical surgical floor. Patient was kept n.p.o. and started on IV fluids GI consult was requested. Patient started on PPI. Patient subsequently undergone upper endoscopy with a biopsy, which revealed hiatal hernia and gastritis, status post biopsy. Biopsy results revealed mild chronic gastritis. Negative for Helicobacter. Negative for intestinal metaplasia, dysplasia or malignancy. Patient slowly started on diet and was advanced as tolerated. Patient was continued on proton pump inhibitors and Carafate. Infectious disease doctor followed. Patient presented with nausea, vomiting and sore throat, most likely due to gastritis flare. ID specialist doubted any infectious process. Patient also demonstrated sore tongue , but no obvious ulcer, suspected to be acid related-. Patient was closely monitored for oral herpes. Patient remained afebrile, no leukocytosis, no evidence of oral herpes. ID recommended to monitor patient off antibiotics. Patient started on Magic mouthwash. ID specialist recommended to monitor for ulcers and if develop, start empiric valacyclovir. Aspiration precaution maintained. Supplemental oxygen provided as needed to keep pulse oximetry above 92%. Pulmonary toilet provided as needed. Pulse oximetry was stable on room air. No evidence of COPD exacerbation, no signs of respiratory distress. Abdominal ultrasound was negative for gallstones, dilated ducts or other significant abnormality. Left lower pole 6 mm hypoechoic focus without distal acoustic enhancement, probably a small angiomyolipoma versus parenchymal calcification. Bilateral renal cyst accidentally noted. Renal parameters and electrolytes were closely monitored. Electrolytes corrected as needed. Prior to discharge BUN from 22 down to 9 and creatinine from 1.3 down to 1.2. All electrolytes stable. Urine culture revealed Klebsiella , however patient had no urinary complaints, no fever, no leukocytosis. Urinalysis revealed no evidence of pyuria. Infectious disease specialist recommended to keep off antibiotics. Patient was able to tolerate diet. Patient was stable for discharge home. FINAL DIAGNOSES: Status post EGD Hiatal hernia Gastritis , status post biopsy GERD COPD DISCHARGE MEDICATIONS: See Medication Reconciliation list. DISCHARGE INSTRUCTIONS: Patient was discharged home . Follow up with primary care provider in one week. I have been assigned to dictate discharge summary for this account. I was not involved in the patient's management. Suzy Ramirez NP Jun 14, 2018 15:37
== END 2018-06-11 14:41 | disposition home or self-care (01) | DRG 392 ==
LOC: EDBD 16:21 → EMR 16:56 → 2E 20:20 → EDBEDREQ 21:10 → 4E 22:32
DX: K44.9 Diaphragmatic hernia without obstruction or gangrene (principal); N39.0 Urinary tract infection, site not specified; K29.70 Gastritis, unspecified, without bleeding; K21.9 Gastro-esophageal reflux disease without esophagitis; J44.9 Chronic obstructive pulmonary disease, unspecified; I27.20 Pulmonary hypertension, unspecified; D64.9 Anemia, unspecified
CPT/HCPCS: 36415; 71046; 76700; 80053; 81003; 82150; 83690; 83735; 84100; 85007; 85025; 85610; 85651; 85730; 86140; 86703; 86705; 86709; 86710; 86803; 87086; 87181; 87340; 94003; 94150; 94640; 94664; 94760; 96361; 96374; 96375; 99285; J2405; J2765